=== PATIENT | female | born 1970 | race Caucasian/White ===

== ENCOUNTER → 2016-08-23 09:39 | Outpatient (CLI) | payer BC ==
[2015-11-17 07:56] VITALS: BMI 20.5
[~2016-08-23 09:39] MED LIST: ESGIC TABLET1 TAB PO; LEXAPRO10 MG PO; TIROSINT75 MCG PO; VERAPAMIL ER P200 MG PO
[2016-08-26 06:15] LABS: 5HIAA - 24HR 2.6 mg/24 hr (0.0-14.9); 5HIAA - UR 0.8 mg/L (Undefined)
== END | disposition home or self-care (01) ==
LOC: D.LAB 09:39
PROVIDERS: Psychiatry & Neurology Neurology
DX: G43.809 Other migraine, not intractable, without status migrainosus (principal)

== ENCOUNTER → 2020-01-01 09:30 | Outpatient (CLI) | payer BC ==
[2015-11-17 07:56] VITALS: BMI 20.5
[2020-01-01 10:09] LABS: BASOPHILS 0.3 % (0-2); HEMATOCRIT 42.3 % (36.0-48.0); HEMOGLOBIN 14.1 g/dL (12-16); IMMATURE GRANULOCYTES 0.2 % (0-5); LYMPHOCYTES 27.6 % (15-50); MCHC 33.3 g/dL (31.0-37.0); MONOCYTES 6.3 % (2-11); NEUTROPHILS 64.6 % (40-80); RBC 4.55 10x6/uL (4.00-5.40); RDW 12.2 % (11.5-14.5); WBC 6.1 10x3/uL (4.8-10.8)
[2020-01-01 10:18] LABS: PLATELET COUNT 240 10x3/uL (130-400)
[2020-01-01 10:29] LABS: ALBUMIN 4.3 g/dL (3.4-5.0); ANION GAP 10.1 mmol/L (8-16); BILIRUBIN - TOTAL 0.16 mg/dL (0.2-1.3); CALCIUM 8.9 mg/dL (8.5-10.1); CARBON DIOXIDE 30.3 mmol/L (21.0-32.0); POTASSIUM - SERUM 3.4 mmol/L (3.5-5.1); PROTEIN - SERUM 7.5 g/dL (6.4-8.2)
== END | disposition home or self-care (01) ==
LOC: D.LAB 09:30
PROVIDERS: ATTEND Internal Medicine Gastroenterology
DX: R10.12 Left upper quadrant pain (principal); R14.0 Abdominal distension (gaseous); R93.5 Abnormal findings on diagnostic imaging of other abdominal regions, including retroperitoneum

== ENCOUNTER → 2020-01-31 08:27 | Outpatient (CLI) | payer BC ==
[2015-11-17 07:56] VITALS: BMI 20.5
== END | disposition home or self-care (01) ==
LOC: D.CT 08:27
PROVIDERS: ATTEND Internal Medicine Gastroenterology
DX: R14.0 Abdominal distension (gaseous) (principal); R10.12 Left upper quadrant pain